=== PATIENT | male | born 1990 | race Caucasian/White ===

== ENCOUNTER 2019-02-17 11:37 | Emergency (ER) | payer SELFPAY ==
[~2019-02-17] VITALS: Ht 177.8 cm; Wt 75.0 kg
[2019-02-17 11:40] VITALS: Ht 177.8 cm; Wt 75.0 kg
--- NOTE | 2019-02-17 12:41 | ERD ---
ER Documentation Chief Complaint Chief Complaint Palpitations with dizziness on/off X 2 wks HPI Patient is a 28-year-old male with no medical problems who presents with palpitations. Patient said that he had this last year but they have come back. He said they started again 2 weeks ago. He says that he feels like his "blood drops" and he feels woozy and like he might pass out. He has not passed out however. His symptoms come and go. He said that he uses Celsius and bang as pre-workout. ROS All systems reviewed and are negative except as per history of present illness. Allergies Allergies: Coded Allergies: Penicillins (Verified Allergy, Mild, 02/17/19) PMhx/Soc Medical and Surgical Hx: pt denies Medical Hx, pt denies Surgical Hx Hx Alcohol Use: No Hx Substance Use: No Hx Tobacco Use: No Smoking Status: Never smoker FmHx Family History: No diabetes Physical Exam Vitals Vital Signs Date Temp Pulse Resp B/P (MAP) Pulse Ox O2 O2 Flow FiO2 Time Delivery Rate 02/17/19 96.8 50 18 135/73 99 11:40 (93) Physical Exam Const: No acute distress Head: Atraumatic Eyes: Normal Conjunctiva ENT: Normal External Ears, Nose and Mouth. Neck: Full range of motion. No meningismus. Resp: Clear to auscultation bilaterally Cardio: Regular rate and rhythm, no murmurs Abd: Soft, non tender, non distended. Normal bowel sounds Skin: No petechiae or rashes Back: No midline or flank tenderness Ext: No cyanosis, or edema Neur: Awake and alert Psych: Normal Mood and Affect Procedures/MDM EKG read by me: Rate/Rhythm: Sinus bradycardia at a rate of 49 Intervals: Normal Impression: Bradycardia with benign early repolarization Smoking Cessation Therapy: Pt. was lectured for greater than 3 minutes on the health risks of continued smoking and the benefits of cessation. Patient is a 28-year-old male with no medical problems who presents with palpitations. EKG shows sinus bradycardia and early repolarization. He is well-appearing and well-hydrated. I believe his pre-workout may be adding to his symptoms and I told him to trial not using these for 2 weeks and see if it changes his symptoms. I told him he will need to follow-up closely with a primary doctor and will give him a list of the local clinics in the area. He should follow-up within the next 24 to 48 hours. He should avoid physical activity until cleared by primary doctor. He can return for any worsening symptoms. I do not believe he requires further work-up or admission to the hospital at this time. Departure Diagnosis: Primary Impression: Palpitations Condition: Fair Patient Instructions: Palpitations Referrals: [facility] YOU HAVE RECEIVED A MEDICAL SCREENING EXAM AND THE RESULTS INDICATE THAT YOU DO NOT HAVE A CONDITION THAT REQUIRES URGENT TREATMENT IN THE EMERGENCY DEPARTMENT. FURTHER EVALUATION AND TREATMENT OF YOUR CONDITION CAN WAIT UNTIL YOU ARE SEEN IN YOUR DOCTORS OFFICE WITHIN THE NEXT 1-2 DAYS. IT IS YOUR RESPONSIBILITY TO MAKE AN APPOINTMENT FOR [facility]. IF YOU HAVE A PRIMARY DOCTOR --you should call your primary doctor and schedule an appointment IF YOU DO NOT HAVE A PRIMARY DOCTOR YOU CAN CALL OUR PHYSICIAN REFERRAL HOTLINE AT IF YOU CAN NOT AFFORD TO SEE A PHYSICIAN YOU CAN CHOSE FROM THE FOLLOWING [facility] [address] [facility]. [facility] [address] [facility] [facility] [address] [facility] [facility] [address] [facility] [address] [facility]. [facility]. [address] Additional Instructions: Call your primary care doctor TOMORROW for an appointment during the next 1-2 days.See the doctor sooner or return here if your condition worsens before your appointment time. SUE OLSON MD Feb 17, 2019 12:41
[2019-02-17 13:27] VITALS: BP 130/75; PULSE 52; RESP 18
== END 2019-02-17 13:28 | disposition home or self-care (01) ==
LOC: FTE 11:37
DX: R00.2 Palpitations (principal)
CPT/HCPCS: 93005